=== PATIENT | female | born 1960 | race Caucasian/White ===

== ENCOUNTER → 2017-04-29 | Outpatient (CLI) | payer BC ==
[~2017-04-29] MED LIST: ACIDOPHILUS LA1 EACH PO; ADDERALL XR 2020 MG PO; ALLEGRA ALLERGY60 MG PO; ALLEGRA-D 121 TABLET PO; AMPHETAMINE SAL20 MG PO; ASPIR-LOW81 MG PO; Adderall PO; BRINTELLIX10 MG PO; BUPROPION XL150 MG PO; BUSPAR30 MG PO; Buspar PO; COZAAR50 MG PO; Cozaar PO; Ecotrin PO; FLAX OIL1000 MG PO; FLAX SEED OIL1 EACH PO; Flaxseed Oil PO; LASIX40 MG PO; Lasix PO; MENOPAUSE SUPPO20 MG PO; MOBIC7.5 MG PO; NASONEX17 GM BOTH NARES; NEXIUM40 MG PO; NORCO 5/3251 TABLET PO; OMEGA 3-6-91200 MG PO; PROzac PO; SARAFEM10 M1 PO; VITAMIN B12-FO1 EACH PO; VITAMIN C500 M1 PO; Vitamin B-12 PO; Wellbutrin XL PO
== END | disposition home or self-care (01) ==
LOC: NUC 07:25
DX: J30.9 Allergic rhinitis, unspecified (principal); E06.3 Autoimmune thyroiditis
CPT/HCPCS: 78072; A9500